=== PATIENT | female | born 1975 | race Caucasian/White ===

== ENCOUNTER 2017-10-21 09:02 | Emergency (ER) | payer SELFPAY ==
[~2017-10-21] VITALS: Ht 165.1 cm; Wt 96.9 kg
[2017-10-21 10:11] LABS: PTT 25.5 SEC (25-37)
[2017-10-21 10:13] LABS: CHLORIDE 104 mEq/L (99-109); POTASSIUM 4.4 mEq/L (3.7-5.4); SODIUM 139 mEq/L (136-147)
[2017-10-21 10:14] LABS: GLUCOSE 97 mg/dL (70-99)
[2017-10-21 10:15] LABS: BASOPHIL (%) 1.2 % (0-1); BASOPHIL COUNT 0.1 K/uL (0-0.1); EOSINOPHIL (%) 4.8 % (0-5); EOSINOPHIL COUNT 0.4 K/uL (0-0.3); HEMATOCRIT 51.9 % (36.0-46.0); HEMOGLOBIN 17.1 G/DL (11.9-15.5); IMMATURE GRANULOCYTE (%) 0.4 % (0.0-0.7); LYMPHOCYTE COUNT 1.8 K/uL (1.0-2.8); MCH 29.3 PG (29.0-34.0); MCHC 32.9 G/DL (30.0-36.0); MONOCYTE (%) 7.9 % (3-12); MONOCYTE COUNT 0.6 K/uL (0-0.8); NEUTROPHIL (%) 62.7 % (45-76); NEUTROPHIL COUNT 4.9 K/uL (1.8-6.4); PLATELET COUNT 309 K/uL (156-360); RBC DIS.WIDTH-CV 12.8 % (11.8-14.6); RBC DIS.WIDTH-SD 41.5 % (39-53); RED BLOOD COUNT 5.83 M/uL (3.80-5.20); WHITE BLOOD COUNT 7.8 K/uL (4.1-10.2)
[2017-10-21 10:18] LABS: CREATININE 1.1 mg/dL (0.6-1.3); GFR ESTIMATE (CALCULATED) 57 mL/min/
[2017-10-21 10:19] LABS: UREA NITROGEN (BUN) 11 mg/dL (9-23)
[2017-10-21 10:22] LABS: TROP-I INTERPRETATION NEGATIVE; TROPONIN-I < 0.01 ng/mL (0.0-0.30)
[2017-10-21 12:40] LABS: TROP-I INTERPRETATION NEGATIVE; TROPONIN-I < 0.01 ng/mL (0.0-0.30)
[2017-10-21] MEDS ORDERED: XANAX0.5 MG PO (13:38)
[2017-10-21 13:52] VITALS: BP 164/109
== END 2017-10-21 13:57 | disposition home or self-care (01) ==
LOC: EDSEX 09:02 → EME 09:02
PROVIDERS: Emergency Medicine
DX: R03.0 Elevated blood-pressure reading, without diagnosis of hypertension (principal); F41.1 Generalized anxiety disorder
CPT/HCPCS: 71045; 71275; 80048; 84484; 85025; 85610; 85730; 93005; 99281; 99285; J7030